=== PATIENT | male | born 1960 | race Caucasian/White ===

== ENCOUNTER → 2021-01-12 12:43 | Outpatient (CLI) | payer BC | END | disposition home or self-care (01) | LOC: D.LAB 12:43 | PROVIDERS: ATTEND Internal Medicine Pulmonary Disease | DX: Z11.52 Encounter for screening for COVID-19 (principal) ==

== ENCOUNTER → 2021-01-17 14:01 | Outpatient (CLI) | payer BC | END | disposition home or self-care (01) | LOC: D.CT 14:01 → D.RT 15:00 | PROVIDERS: ATTEND Internal Medicine Pulmonary Disease | DX: S22.41XA Multiple fractures of ribs, right side, initial encounter for closed fracture (principal); R06.09 Other forms of dyspnea; Z11.52 Encounter for screening for COVID-19 ==